=== PATIENT | male | born 1955 | race Caucasian/White ===

== ENCOUNTER 2019-10-03 14:08 | Observation (INO) | payer OTHER ==
--- NOTE | 2019-10-03 14:25 | PDOC ---
Rapid Medical Evaluation Chief Complaint: Chest Pain Time Seen by Provider: 10/03/19 14:22 Medical Evaluation: Allergies Allergy/AdvReac Type Severity Reaction Status Date / Time No Known Allergies Allergy Verified 10/03/19 14:19 Vital Signs Temp Pulse Resp BP Pulse Ox 98 F 60 18 132/61 99 10/03/19 14:11 10/03/19 14:11 10/03/19 14:11 10/03/19 14:11 10/03/19 14:11 10/03/19 14:22 Pt c/o: chest tightness and sob, pt radiates from left chest to back, cardiac hx , missed his cardiac cath appt last week Pt on brief exam: reproducible cp at 6th- 8th rib at left nipple/mcl , lcta, vss , ekg nsr Pt ordered for: cardiac w/u. pt was seen by dex in triage Pt to proceed to the ED Discharge Disposition - Diagnosis Chest pain - Referrals - Patient Instructions - Post Discharge Activity
[2019-10-03 15:33] LABS: BASO % 0.9 % (0-2.0); EOS % 9.1 % (0-4.5); HEMATOCRIT 32.5 % (35.4-49); HEMOGLOBIN 9.9 GM/dL (11.7-16.9); LYMPH % 34.3 % (8-40); MCHC 30.5 g/dl (32.0-35.9); MEAN CELL VOLUME 68.7 fl (80-96); MEAN PLT VOLUME 7.5 fl (7.5-11.1); MONO % 7.8 % (3.8-10.2); NEUT % 47.9 % (42.8-82.8); PLATELET COUNT 250 K/MM3 (134-434); RBC 4.73 M/mm3 (4.00-5.60); RDW 16.9 % (11.9-15.9); WHITE BLOOD COUNT 5.3 K/mm3 (4.0-10.0)
[2019-10-03 16:09] LABS: ALBUMIN 3.9 g/dl (3.4-5.0); BILIRUBIN,TOTAL 0.2 mg/dL (0.2-1); CALCIUM 8.9 mg/dL (8.5-10.1); CREATININE 0.7 mg/dL (0.55-1.3); MAGNESIUM 2.4 mg/dL (1.8-2.4); POTASSIUM 4.4 mmol/L (3.5-5.1); TOT PROT 7.2 g/dl (6.4-8.2)
[2019-10-03 16:44] LABS: INR 1.04 (0.83-1.09); PROTHROMBIN TIME (PATIENT) 12.3 SEC (9.7-13.0)
[2019-10-03 16:47] LABS: ACTIVATED PTT 30.3 SECONDS (25.2-36.5)
[2019-10-03 17:30] LABS: ANISOCYTOSIS 1+; MACROCYTOSIS 0; PLATELET ESTIMATE NORMAL
--- NOTE | 2019-10-03 17:37 | PDOC ---
Attending Attestation - Resident Resident Name: Joel James - ED Attending Attestation I have performed the following: I have examined & evaluated the patient, The case was reviewed & discussed with the resident, I agree w/resident's findings & plan, Exceptions are as noted - HPI HPI: 10/03/19 17:32 Mr. Dilshad Salas is a 64 yo M who presents to the ER with a complaint of chest pain The patient states that he has had chest pain intermittently for the past day He has also had a headache for the past 3 days Chest pain radiates to the left arm Pt was supposed to go to Cardiac Cath last week but did not Plan is for cardiac cath at the end of October No exertional dyspnea PMH: DM, HTN, HLD PSH: carol Meds: please see MAR - Physicial Exam PE: 10/03/19 17:37 Exam GENERAL: The patient is in no acute distress. ENT: Ears normal, nares patent, oropharynx clear without exudates. Moist mucous membranes. NECK: Normal range of motion, supple, no nuchal rigidity (+) LAD LUNGS: Breath sounds equal, clear to auscultation bilaterally. No wheezes, and no crackles. HEART:Regular rate and rhythm, normal S1 and S2 without murmur, rub or gallop. ABDOMEN: Soft, nontender, normoactive bowel sounds. EXTREMITIES: Normal range of motion, no edema. NEUROLOGICAL: Cranial nerves II through XII grossly intact. Normal speech. No focal neurological deficits. No focal weakness or numbness SKIN: Warm, Dry, normal turgor, no rashes or lesions noted. - Medical Decision Making 10/03/19 17:38 64-year-old male presenting to emergency department with recurrent chest pain, was due to have a cardiac catheterization but missed his appointment. Patient presents with chest pain which occurred yesterday, none today Differential includes cardiac ischemia, pe, asthma exacerbation, pneumonia, pneumothorax, pleural effusion, costochondritis, pericarditis, GERD. We will do: Labs EKG Chest x-ray Will plan to admit 10/03/19 17:40 Laboratory Tests 10/03/19 10/03/19 10/03/19 15:20 15:20 15:20 WBC 5.3 Hgb 9.9 L Hct 32.5 L Plt Count 250 BUN 11.0 Creatinine 0.7 Creatine Kinase 103 Troponin I < 0.[address] head as pt has had headache AND some left facial tingling for the past three days CT head: No acute intracranial hemorrhage or mass empty sella turcica Will admit for chest pain
--- NOTE | 2019-10-03 18:14 | PDOC ---
History of Present Illness - General Chief Complaint: Chest Pain Stated Complaint: CHEST PAIN Time Seen by Provider: 10/03/19 14:22 History Source: Patient - History of Present Illness Initial Comments: Mr. Yung is a 64 y/o man with hx CAD, HTN p/w chest pain yesterday. He reports that yesterday he began to note non-radiating pain in his chest. He reports that he had intermittent chest pain overnight, although he denies any pain at this time. He reports some numbness in his L arm when he woke up that has now resolved. He reports that last week he was scheduled for a cardiac stenting by cardiology (Dr. Espinosa), but that he did not make it to the appointment and does not have a follow up scheduled. He reports running into Dr. Crespo who was concerned that he was not in the hospital (as he had been scheduled for stenting) and encouraged him to be evaluated in the ED. 10/03/19 18:13 Fire Adjuster - Dr. Espinosa Evaluated in ED by Dr. Crespo. Patient was scheduled for cardiac stenting last week and missed appointment, plan for cardiac obs/linkage to further cardiac care Past History - Past Medical History Allergies/Adverse Reactions: Allergies Allergy/AdvReac Type Severity Reaction Status Date / Time No Known Allergies Allergy Verified 10/03/19 14:19 Home Medications: Ambulatory Orders Metformin HCl [Glucophage] 850 mg PO DAILY 10/03/19 Metoprolol Tartrate 100 mg PO DAILY 10/03/19 Cardiac Disorders: Yes COPD: No Diabetes: Yes - Surgical History Appendectomy: Yes - Psycho Social/Smoking Cessation Hx Smoking History: Never smoked *Physical Exam - Vital Signs Last Vital Signs Temp Pulse Resp BP Pulse Ox 98 F 60 18 132/61 99 10/03/19 14:11 10/03/19 14:11 10/03/19 14:11 10/03/19 14:11 10/03/19 16:06 ED Treatment Course - LABORATORY CBC & Chemistry Diagram: 10/03/19 15:20 10/03/19 15:20 - ADDITIONAL ORDERS Additional order review: Laboratory Results 10/03/19 10/03/19 10/03/19 15:20 15:20 15:20 PT with INR 12.30 INR 1.04 PTT (Actin FS) 30.3 Sodium 139 Potassium 4.4 Chloride 106 Carbon Dioxide 30 Anion Gap 4 L BUN 11.0 Creatinine 0.7 Est GFR (CKD-EPI)AfAm 115.59 Est GFR (CKD-EPI)NonAf 99.73 Random Glucose 100 Calcium 8.9 Magnesium 2.4 Total Bilirubin 0.2 AST 18 ALT 28 Alkaline Phosphatase 70 Creatine Kinase 103 Troponin I < 0.02 Total Protein 7.2 Albumin 3.9 10/03/19 15:20 RBC 4.73 MCV 68.7 L MCHC 30.5 L RDW 16.9 H MPV 7.5 Neutrophils % 47.9 Lymphocytes % 34.3 Monocytes % 7.8 Eosinophils % 9.1 H Basophils % 0.9 - RADIOLOGY Radiology Studies Ordered: Category Date Time Status HEAD CT WITHOUT CONTRAST [CT] Stat CT Scan 10/03/19 16:07 Completed CHEST X-RAY PORTABLE* [RAD] Stat Radiology 10/03/19 16:03 Taken Discharge - Discharge Information Clinical Impression/Diagnosis: Chest pain - Follow up/Referral - Patient Discharge Instructions - Post Discharge Activity
--- NOTE | 2019-10-03 19:21 | PN ---
Teaching Attending Note Name of Resident: Vidal Shultz ATTENDING PHYSICIAN STATEMENT I saw and evaluated the patient. I reviewed the resident's note and discussed the case with the resident. I agree with the resident's findings and plan as documented. SUBJECTIVE: Patient is a 64 year old man with PMH of NIDDM, HLD, CAD and HTN who presents with chest pain since yesterday. He reports that yesterday he began to note non- radiating pain in his chest. He had intermittent chest pain overnight, although he denies any pain at this time. Noted some numbness in his left arm when he woke up that has since resolved. He missed the appointment for a scheduled cardiac stenting by cardiology (Dr. Espinosa) last week. Denies fever, chills , headache, SOB, diaphoresis, abdominal pain, vomiting, dysuria, frequency or diarrhea. No recent travel or sick contacts. Denies alcohol, tobacco or illicit drug use. OBJECTIVE: Alert Vital Signs Period Temp Pulse Resp BP Sys/Hilario Pulse Ox Last 24 Hr 98 F 55-60 14-18 125-132/61-72 99-99 HEENT: No Jaundice, eye redness or discharge, PERRLA, EOMI. Normocephalic, atraumatic. External ears are normal and hearing is grossly intact. No nasal discharge. Neck: Supple, nontender. No palpable adenopathy or thyromegaly. No JVD Chest: Good effort. Bibasilar crackles. Clear to percussion. Heart: Regular. No S3, rub or murmur Abdomen: Not distended, soft, nontender and no HSM. No rebound or guarding. Normal bowel sounds. Ext: Peripheral pulses intact. No leg edema. Skin: Warm and dry. No petechiae, rash or ecchymosis. Neuro: Alert. Oriented x3. CN 2-12 grossly intact. Sensation grossly intact in all four extremities and DTR are symmetric. Psych: Appropriate mood and affect. Good insight. Home Medications Medication Instructions Recorded Metformin HCl [Glucophage] 850 mg PO DAILY 10/03/19 Metoprolol Tartrate 100 mg PO DAILY 10/03/19 Abnormal Lab Results 10/03/19 10/03/19 15:20 15:20 Hgb 9.9 L Hct 32.5 L MCV 68.7 L MCH 21.0 L MCHC 30.5 L RDW 16.9 H Eosinophils % 9.1 H Anion Gap 4 L ASSESSMENT AND PLAN: 1. Chest pain - Now pain free. No acute abnormality on CXR. No acute intracranial abnormality on Head CT scan. EKG shows sinus bradycardia with rate of [address]-T wave changes. Initial troponin is negative. Will admit to telemetry to rule out ACS, get ECHO, fasting lipids and consult cardiology. Will continue comprehensive care for all of patients comorbid conditions. 2. DM For now, we will hold the home diabetes drugs and implement sliding scale insulin regimen. Provide comprehensive diabetes care with patient teaching and counseling about the importance of adherence to prescribed diabetes regimen, euglycemia, eye care and foot care. 3. Anemia with low MCV - Cause unclear. Will do basic anemia work up including serial stool guaiacs, reticulocyte count and iron studies. Consult GI. Would benefit from Procrit therapy once iron replete. 4. Obesity Counseled on the risks associated with obesity. Will provide patient all the necessary assistance, counseling and positive reinforcement to facilitate weight loss. Consult director music. 5. Hypertension - Restart suitable outpatient antihypertensive drugs when clinically appropriate. Revise regimen to ensure [id number] excellent BP control and classification counselor patient on the injurious effects of uncontrolled hypertension. Nonpharmacologic measures to control hypertension like weight loss , salt restriction and exercise discussed. Importance of adherence to treatment regimen and attainment of normotension emphasized. 6. DVT prophylaxis - Lovenox 40 mg SQ q 24 hours. 7. Advance directives - Full code
--- NOTE | 2019-10-03 20:33 | HP ---
CHIEF COMPLAINT: chest pain PCP: Dr. Mcghee HISTORY OF PRESENT ILLNESS: 64 yo M PMH of HTN, CAD, DM, HLD presenting to ED with chest pain. pt states that on 10/02 (11am) he started having 10/10 left sided chest pain. he states the pain occasionally radiated to his back and occasionally down his L arm. he states the pain is pleuritic and worse when he sits forward. pt was scheduled for cardiac cath in Oct at [facility] . pt states he saw his PCP today and was told to come to the ED as he might be having a blockage in his heart. pt states that for 3 days hes been having a headache. pt states his sugars have also been elevated for 3 days. pt states yesterday he also experienced nausea and dizziness. the chest pain has been resolved for a day and his headache is now improving. pt denies fevers, chills,vomiting, shortness of breath ER course was notable for: (1)trop neg x2 (2)EKG NSR, no ST changes (3)CT head neg Recent Travel: denies PAST MEDICAL HISTORY:HTN, CAD, DM, HLD PAST SURGICAL HISTORY:appendectomy , L shoulder surgery Social History: Smoking:denies Alcohol:denies Drugs: denies Allergies No Known Allergies Allergy (Verified 10/03/19 14:19) HOME MEDICATIONS: Home Medications Medication Instructions Recorded Metformin HCl [Glucophage] 850 mg PO DAILY 10/03/19 Metoprolol Tartrate 100 mg PO DAILY 10/03/19 REVIEW OF SYSTEMS CONSTITUTIONAL: Absent: fever, chills, diaphoresis, generalized weakness, malaise, loss of appetite, weight change HEENT: Absent: rhinorrhea, nasal congestion, throat pain, throat swelling, difficulty swallowing, mouth swelling, ear pain, eye pain, visual changes CARDIOVASCULAR: Present: chest pain, lightheadedness Absent: syncope, palpitations, irregular heart rate, peripheral edema RESPIRATORY: Absent: cough, shortness of breath, dyspnea with exertion, orthopnea, wheezing, stridor, hemoptysis GASTROINTESTINAL: Present: nausea Absent: abdominal pain, abdominal distension, vomiting, diarrhea, constipation, melena, hematochezia GENITOURINARY: Absent: dysuria, frequency, urgency, hesitancy, hematuria, flank pain, genital pain MUSCULOSKELETAL: Absent: myalgia, arthralgia, joint swelling, back pain, neck pain SKIN: Absent: rash, itching, pallor HEMATOLOGIC/IMMUNOLOGIC: Absent: easy bleeding, easy bruising, lymphadenopathy, frequent infections ENDOCRINE: Absent: unexplained weight gain, unexplained weight loss, heat intolerance, cold intolerance NEUROLOGIC: Absent: headache, focal weakness or paresthesias, dizziness, unsteady gait, seizure, mental status changes, bladder or bowel incontinence PHYSICAL EXAMINATION Vital Signs - 24 hr 10/03/19 10/03/19 10/03/19 14:11 16:06 19:30 Temperature 98 F Pulse Rate 60 Pulse Rate [ 55 L Right] Respiratory 18 14 Rate Blood Pressure 132/61 Blood Pressure 125/72 [Right Arm] O2 Sat by Pulse 99 99 99 Oximetry (%) GENERAL: Awake, alert, and fully oriented, in no acute distress. HEAD: Normal with no signs of trauma. EYES: Pupils equal, round and reactive to light, extraocular movements intact EARS, NOSE, THROAT: Ears normal, nares patent, oropharynx clear without exudates. Moist mucous membranes. NECK: Normal range of motion, supple without lymphadenopathy, JVD LUNGS: Breath sounds equal, b/l basilar crackles. No accessory muscle use. HEART: Regular rate and rhythm, normal S1 and S2 without murmur, rub or gallop. ABDOMEN: Soft, nontender, not distended, normoactive bowel sounds, no guarding, no rebound, no masses. MUSCULOSKELETAL: Normal range of motion at all joints. No bony deformities or tenderness. No CVA tenderness. UPPER EXTREMITIES: 2+ pulses, warm, well-perfused. No cyanosis. No clubbing. No peripheral edema. LOWER EXTREMITIES: 2+ pulses, warm, well-perfused. No calf tenderness. No peripheral edema. NEUROLOGICAL: Cranial nerves II-XII intact. Normal speech. PSYCHIATRIC: Cooperative. Good eye contact. Appropriate mood and affect. SKIN: Warm, dry, normal turgor, no rashes or lesions noted, normal capillary refill. Laboratory Last Values WBC 5.3 K/mm3 (4.0-10.0) 10/03/19 15:20 RBC 4.73 M/mm3 (4.00-5.60) 10/03/19 15:20 Hgb 9.9 GM/dL (11.7-16.9) L 10/03/19 15:20 Hct 32.5 % (35.4-49) L 10/03/19 15:20 MCV 68.7 fl (80-96) L 10/03/19 15:20 MCH 21.0 pg (25.7-33.7) L 10/03/19 15:20 MCHC 30.5 g/dl (32.0-35.9) L 10/03/19 15:20 RDW 16.9 % (11.9-15.9) H 10/03/19 15:20 Plt Count 250 K/MM3 (134-434) 10/03/19 15:20 MPV 7.5 fl (7.5-11.1) 10/03/19 15:20 Absolute Neuts (auto) 2.5 K/mm3 (1.5-8.0) 10/03/19 15:20 Neutrophils % 47.9 % (42.8-82.8) 10/03/19 15:20 Lymphocytes % 34.3 % (8-40) 10/03/19 15:20 Monocytes % 7.8 % (3.8-10.2) 10/03/19 15:20 Eosinophils % 9.1 % (0-4.5) H 10/03/19 15:20 Basophils % 0.9 % (0-2.0) 10/03/19 15:20 Nucleated RBC % 0 % (0-0) 10/03/19 15:20 Hypochromia 2+ 10/03/19 15:20 Platelet Estimate Normal 10/03/19 15:20 Polychromasia 0 10/03/19 15:20 Poikilocytosis 1+ 10/03/19 15:20 Anisocytosis 1+ 10/03/19 15:20 Microcytosis 1+ 10/03/19 15:20 Macrocytosis 0 10/03/19 15:20 PT with INR 12.30 SEC (9.7-13.0) 10/03/19 15:20 INR 1.04 (0.83-1.09) 10/03/19 15:20 PTT (Actin FS) 30.3 SECONDS (25.2-36.5) 10/03/19 15:20 Sodium 139 mmol/L (136-145) 10/03/19 15:20 Potassium 4.4 mmol/L (3.5-5.1) 10/03/19 15:20 Chloride 106 mmol/L (98-107) 10/03/19 15:20 Carbon Dioxide 30 mmol/L (21-32) 10/03/19 15:20 Anion Gap 4 MMOL/L (8-16) L 10/03/19 15:20 BUN 11.0 mg/dL (7-18) 10/03/19 15:20 Creatinine 0.7 mg/dL (0.55-1.3) 10/03/19 15:20 Est GFR (CKD-EPI)AfAm 115.59 10/03/19 15:20 Est GFR (CKD-EPI)NonAf 99.73 10/03/19 15:20 Random Glucose 100 mg/dL (74-106) 10/03/19 15:20 Calcium 8.9 mg/dL (8.5-10.1) 10/03/19 15:20 Magnesium 2.4 mg/dL (1.8-2.4) 10/03/19 15:20 Total Bilirubin 0.2 mg/dL (0.2-1) 10/03/19 15:20 AST 18 U/L (15-37) 10/03/19 15:20 ALT 28 U/L (13-61) 10/03/19 15:20 Alkaline Phosphatase 70 U/L (45-117) 10/03/19 15:20 Creatine Kinase 103 U/L (26-308) 10/03/19 15:20 Troponin I < 0.02 ng/ml (0.00-0.05) 10/03/19 19:30 Total Protein 7.2 g/dl (6.4-8.2) 10/03/19 15:20 Albumin 3.9 g/dl (3.4-5.0) 10/03/19 15:20 ASSESSMENT/PLAN: 64 yo M PMH of HTN, CAD, DM, HLD presenting to ED with chest pain. pt states that on 10/02 (11am) he started having 10/10 left sided chest pain.pt is admitted to tele obs for r/o ACS R/o ACS - trop neg x2 - EKG reviewed, NSR no ST changes -pt currently asymptomatic, vitals stable - pending echo - c/w asa 81 , statin - NPO for possible stress in am - continue cardiac monitoring -cardio recs appreciated DM - hold oral antiglycemic -ISS - BGM ACHS HTN - continue metoprolol F/E/N -monitor lytes - NPO Dispo: tele obs Visit type - Emergency Visit Emergency Visit: Yes ED Registration Date: 10/03/19 Care time: The patient presented to the Emergency Department on the above date and was hospitalized for further evaluation of their emergent condition. - New Patient This patient is new to me today: Yes Date on this admission: 10/04/19 - Critical Care Critical Care patient: No ATTENDING PHYSICIAN STATEMENT I saw and evaluated the patient. I reviewed the resident's note and discussed the case with the resident. I agree with the resident's findings and plan as documented. SUBJECTIVE: OBJECTIVE: ASSESSMENT AND PLAN:
[2019-10-03] MEDS ORDERED: ACETAMINOPHEN 325 MG TABLET (FP) PO PRN (21:42)
[2019-10-03 23:16] VITALS: BMI 31.3
[2019-10-04 07:07] LABS: BASO % 0.6 % (0-2.0); EOS % 7.8 % (0-4.5); HEMATOCRIT 31.1 % (35.4-49); HEMOGLOBIN 9.8 GM/dL (11.7-16.9); LYMPH % 29.9 % (8-40); MCH 21.3 pg (25.7-33.7); MCHC 31.6 g/dl (32.0-35.9); MEAN CELL VOLUME 67.3 fl (80-96); MEAN PLT VOLUME 7.6 fl (7.5-11.1); MONO % 6.5 % (3.8-10.2); NEUT % 55.2 % (42.8-82.8); PLATELET COUNT 220 K/MM3 (134-434); RBC 4.63 M/mm3 (4.00-5.60); RDW 16.9 % (11.9-15.9); RETICULOCYTES 1.81 % (0.5-1.5); WHITE BLOOD COUNT 6.1 K/mm3 (4.0-10.0)
[2019-10-04 07:14] LABS: INR 1.1 (0.83-1.09)
--- NOTE | 2019-10-04 07:17 | CON.CARD ---
Consult Consult Specialty:: cardiology Reason for Consultation:: chest pain - History of Present Illness Chief Complaint: Pt A&O3; c/o chest pain and left shoulder pain now. History of Present Illness: 64 yr old man with PMHx HTN, hyperlipidemia, DM, obesity, CAD (09/2019 stress treadmill MIBI: moderate area/moderate intensity inferior wall ischemia), now admitted with left anterior chest tightness (moderately severe) and left shoulder pain. - History Source History Provided By: Patient Limitations to Obtaining History: No Limitations - Past Medical History Cardio/Vascular: Yes: HTN, Hyperlipdemia Pulmonary: Yes: COPD - Alcohol/Substance Use Hx Alcohol Use: No - Smoking History Smoking history: Never smoked Have you smoked in the past 12 months: No Home Medications - Allergies Allergies/Adverse Reactions: Allergies Allergy/AdvReac Type Severity Reaction Status Date / Time No Known Allergies Allergy Verified 10/03/19 14:19 - Home Medications Home Medications: Ambulatory Orders Metformin HCl [Glucophage] 850 mg PO DAILY 10/03/19 Metoprolol Tartrate 100 mg PO DAILY 10/03/19 Family Medical History Family History: Denies Review of Systems - Review of Systems Constitutional: reports: No Symptoms Eyes: reports: No Symptoms HENT: reports: No Symptoms Neck: reports: No Symptoms Cardiovascular: reports: Chest Pain Respiratory: reports: No Symptoms Gastrointestinal: reports: No Symptoms Genitourinary: reports: No Symptoms Breasts: reports: No Symptoms Reported Musculoskeletal: reports: Joint Pain (left shoulder), Muscle Pain Integumentary: reports: No Symptoms Neurological: reports: No Symptoms Endocrine: reports: No Symptoms Hematology/Lymphatic: reports: No Symptoms Psychiatric: reports: Anxiety - Risk Factors Known Risk Factors: Yes: Age, Diabetes Mellitus, Gender, Hypercholesterolemia, Hypertension, Physical Inactivity, Other (+ stress MIBI) Vital Signs: Vital Signs Temperature 97.9 F 10/04/19 05:00 Pulse Rate 53 L 10/04/19 05:00 Respiratory Rate 17 10/04/19 05:00 Blood Pressure 118/74 10/04/19 05:00 O2 Sat by Pulse Oximetry (%) 97 10/04/19 05:44 Constitutional: Yes: Well Nourished Eyes: Yes: WNL HENT: Yes: WNL Neck: Yes: WNL Respiratory: Yes: WNL Gastrointestinal: Yes: WNL Renal/: Yes: WNL Cardiovascular: Yes: WNL JVD: No Carotid Bruit: No PMI: Non-Displaced Heart Sounds: Yes: S1, S2 Musculoskeletal: Yes: Joint Stiffness Extremities: Yes: WNL Edema: No Peripheral Pulses WNL: Yes Integumentary: Yes: WNL Neurological: Yes: WNL ...Motor Strength: WNL Psychiatric: Yes: WNL - Other Data Labs, Other Data: INR, PTT INR 1.10 (0.83-1.09) H 10/04/19 06:40 Troponin, BNP 10/03/19 10/03/19 15:20 19:30 Troponin I < 0.02 < 0.02 Troponin, BNP 10/03/19 10/03/19 15:20 19:30 Troponin I < 0.02 < 0.02 Ejection Fraction %: LVEF > or = 40 % Imaging - Results Chest X-ray: Image Reviewed EKG: Image Reviewed Problem List - Problems (1) Diabetes Code(s): E11.9 - TYPE 2 DIABETES MELLITUS WITHOUT COMPLICATIONS (2) HTN (hypertension) Code(s): I10 - ESSENTIAL (PRIMARY) HYPERTENSION (3) Hyperlipidemia Assessment/Plan: F/u liopid profile, and adjust atorvastatin dose accoringly to keep LDL < 70 mg/ dL. Code(s): E78.5 - HYPERLIPIDEMIA, UNSPECIFIED (4) Obesity (BMI 30.0-34.9) Code(s): E66.9 - OBESITY, UNSPECIFIED (5) Chest pain Assessment/Plan: TNI < 0.02; f/u serially. EKG: NSR: no acute ST-T changes Plan: Telemetry Serial TNI and EKG ECHO for LVEF, regional wall motion, valve statue. If unremarkalbe workup, pt may be discharged; planned for coronary angiogram in 10/1028. Code(s): R07.9 - CHEST PAIN, UNSPECIFIED
[2019-10-04 07:33] LABS: ALBUMIN 3.6 g/dl (3.4-5.0); BILIRUBIN,TOTAL 0.4 mg/dL (0.2-1); CALCIUM 8.9 mg/dL (8.5-10.1); CREATININE 0.7 mg/dL (0.55-1.3); MAGNESIUM 2.2 mg/dL (1.8-2.4); PHOSPHOROUS 4.1 mg/dL (2.5-4.9); POTASSIUM 4.3 mmol/L (3.5-5.1); TOT PROT 6.7 g/dl (6.4-8.2)
[2019-10-04] MEDS ORDERED: PATIENT'S OWN MEDICATION (NON-FORMULARY) (Metoprolol Tartrate [Metoprolol Tartrate] 100 MG PO SCH (10:00)
[2019-10-04] MEDS ORDERED: METOPROLOL TARTRATE 50 MG TABLET (FP) PO SCH (10:00)
[2019-10-04] MEDS ORDERED: ASPIRIN 81 MG CHEWABLE TABLETS PO SCH (10:00)
[2019-10-04] MEDS ORDERED: DOCUSATE SODIUM 100 MG CAPSULE (FP) PO SCH (10:00)
[2019-10-04] MEDS ORDERED: ENOXAPARIN NA (PORCINE) 40 MG/0.4 ML DISP.SYRIN SQ SCH (10:00)
--- NOTE | 2019-10-04 12:09 | ECHO ---
Name: RONIT KELLYIBERTO Exam:Adult Echocardiogram Study Date: 10/04/2019 07:47 AM Age: 64 yrs Reason For Study: R/O ACS Height: 64 in Weight: 138 lb BSA: 1.7 m2 MMode/2D Measurements & Calculations IVSd: 0.97 cm Ao root diam: 3.0 cm LVIDd: 4.0 cm LA dimension: 3.2 cm LVIDs: 2.8 cm ACS: 2.0 cm LVPWd: 1.0 cm EDV(Teich): 68.7 ml LVOT diam: 2.0 cm ESV(Teich): 30.1 ml LAV (MOD-bp): 36.5 ml RV S Jason: 13.1 cm/sec Doppler Measurements & Calculations MV E max jason: 83.1 cm/sec MVA(VTI): 3.8 cm2 MV A max jason: 106.6 cm/sec MV V2 max: 114.0 cm/sec MV E/A: 0.78 MV max P.2 mmHg MV dec time: 0.19 sec MV V2 mean: 52.1 cm/sec MV mean P.0 mmHg MV V2 VTI: 22.9 cm Ao V2 max: 172.5 cm/sec AI max jason: 404.3 cm/sec Ao max P.0 mmHg AI max P.0 mmHg Ao V2 mean: 123.3 cm/sec Ao mean P.6 mmHg AI dec slope: 286.3 cm/sec2 Ao V2 VTI: 45.6 cm DENG(I,D): 1.9 cm2 AI P1/2t: 413.6 msec DENG(V,D): 1.7 cm2 LV V1 max P.9 mmHg MR max jason: 314.3 cm/sec LV V1 mean P.5 mmHg MR max P.8 mmHg LV V1 max: 96.2 cm/sec LV V1 mean: 73.3 cm/sec LV V1 VTI: 28.4 cm SV(LVOT): 87.8 ml TR max jason: 182.3 cm/sec TR max P.0 mmHg PA V2 max: 90.3 cm/sec Med Peak E' Jason: 6.6 cm/sec PA max P.4 mmHg Med E/e': 12.6 Lat Peak E' Jason: 7.6 cm/sec Lat E/e': 10.9 PI Vmax: 78.7 cm/sec Left Ventricle Left ventricular systolic function is normal. Ejection Fraction = 55-60%. Right Ventricle The right ventricle is normal in size and function. Atria Normal left and right atrial size and function. Mitral Valve There is mild mitral valve thickening. There is no mitral valve stenosis. There is mild mitral regurg itation. Tricuspid Valve The tricuspid valve is normal in structure and function. There is mild tricuspid regurgitation. Aortic Valve The aortic valve opens well. No hemodynamically significant valvular aortic stenosis. Trace to mild a ortic regurgitation. Pulmonic Valve The pulmonic valve is not well seen, but is grossly normal. There is no pulmonic valvular stenosis. T race pulmonic valvular regurgitation. Great Vessels The aortic root is normal size. Pericardium/Pleura There is no pericardial effusion. Interpretation Summary Left ventricular systolic function is normal. Ejection Fraction = 55-60%. There is mild mitral valve thickening. There is mild mitral regurgitation. There is mild tricuspid regurgitation. Trace to mild aortic regurgitation. There is no pericardial effusion. MD [place] *Mami 10/04/2019 12:09 PM
--- NOTE | 2019-10-04 13:41 | EKG ---
Test Reason : Blood Pressure : / mmHG Vent. Rate : 056 BPM Atrial Rate : 056 BPM P-R Int : 156 ms QRS Dur : 096 ms QT Int : 458 ms P-R-T Axes : 037 016 009 degrees QTc Int : 441 ms SINUS BRADYCARDIA OTHERWISE NORMAL ECG NO PREVIOUS ECGS AVAILABLE Confirmed by MEMO VALADEZ MD ([id number]) on 10/04/2019 1:41:05 PM Referred By: ANGEL MCNAMARA DR Confirmed By:MEMO VALADEZ MD
[2019-10-04] MEDS ORDERED: IRON SUCROSE INJECTION 200 MG in SODIUM CHLORIDE 90 ML IVPB ONE (14:00)
--- NOTE | 2019-10-04 14:09 | EKG ---
Test Reason : Blood Pressure : / mmHG Vent. Rate : 057 BPM Atrial Rate : 057 BPM P-R Int : 118 ms QRS Dur : 090 ms QT Int : 452 ms P-R-T Axes : 053 032 031 degrees QTc Int : 439 ms SINUS BRADYCARDIA OTHERWISE NORMAL ECG NO PREVIOUS ECGS AVAILABLE Confirmed by MEMO VALADEZ MD ([id number]) on 10/04/2019 2:09:01 PM Referred By: Confirmed By:MEMO VALADEZ MD
--- NOTE | 2019-10-04 14:32 | CONSULT ---
Consultation: REQUESTING PROVIDER: Kiki Patterson CONSULT REQUEST: We have been asked to medically evaluate this patient for ( Symptomatic anemia ). HISTORY OF PRESENT ILLNESS: 64 yo M PMH of HTN, CAD, DM, HLD presenting to ED with chest pain. pt states that on 10/02 (11am) he started having 10/10 left sided chest pain. he states the pain occasionally radiated to his back and occasionally down his L arm. he states the pain is pleuritic and worse when he sits forward. pt was scheduled for cardiac cath in Oct at [facility] . pt states he saw his PCP today and was told to come to the ED as he might be having a blockage in his heart. pt states that for 3 days hes been having a headache. pt states his sugars have also been elevated for 3 days. pt states yesterday he also experienced nausea and dizziness. the chest pain has been resolved for a day and his headache is now improving. pt denies fevers, chills,vomiting, shortness of breath ER course was notable for: (1)trop neg x2 (2)EKG NSR, no ST changes (3)CT head neg Recent Travel: denies PAST MEDICAL HISTORY:HTN, CAD, DM, HLD PAST SURGICAL HISTORY:appendectomy , L shoulder surgery Social History: Smoking:denies Alcohol:denies Drugs: denies REVIEW OF SYSTEMS: CONSTITUTIONAL: Absent: fever, chills, diaphoresis, generalized weakness, malaise, loss of appetite, weight change HEENT: Absent: rhinorrhea, nasal congestion, throat pain, throat swelling, difficulty swallowing, mouth swelling, ear pain, eye pain, visual changes CARDIOVASCULAR: Absent: chest pain, syncope, palpitations, irregular heart rate, lightheadedness , peripheral edema RESPIRATORY: Absent: cough, shortness of breath, dyspnea with exertion, orthopnea, wheezing, stridor, hemoptysis GASTROINTESTINAL: Absent: abdominal pain, abdominal distension, nausea, vomiting, diarrhea, c onstipation, melena, hematochezia GENITOURINARY: Absent: dysuria, frequency, urgency, hesitancy, hematuria, flank pain, genital pain MUSCULOSKELETAL: Absent: myalgia, arthralgia, joint swelling, back pain, neck pain SKIN: Absent: rash, itching, pallor HEMATOLOGIC/IMMUNOLOGIC: Absent: easy bleeding, easy bruising, lymphadenopathy, frequent infections ENDOCRINE: Absent: unexplained weight gain, unexplained weight loss, heat intolerance, cold intolerance NEUROLOGIC: Absent: headache, focal weakness or paresthesias, dizziness, unsteady gait, seizure, mental status changes, bladder or bowel incontinence PSYCHIATRIC: Absent: anxiety, depression, suicidal or homicidal ideation, hallucinations. PHYSICAL EXAMINATION Vital Signs - 24 hr 10/03/19 10/03/19 10/03/19 16:06 19:30 20:00 Temperature 98.7 F Pulse Rate 60 Pulse Rate [ 55 L Right] Respiratory 14 19 Rate Blood Pressure 137/76 Blood Pressure 125/72 [Right Arm] O2 Sat by Pulse 99 99 97 Oximetry (%) 10/04/19 10/04/19 10/04/19 01:44 05:00 05:44 Temperature 98 F 97.9 F Pulse Rate 54 L 53 L Pulse Rate [ Right] Respiratory 20 17 Rate Blood Pressure 122/71 118/74 Blood Pressure [Right Arm] O2 Sat by Pulse 97 Oximetry (%) 10/04/19 08:55 Temperature 97.9 F Pulse Rate 59 L Pulse Rate [ Right] Respiratory 18 Rate Blood Pressure 108/71 Blood Pressure [Right Arm] O2 Sat by Pulse 97 Oximetry (%) GENERAL: Awake, alert, and fully oriented, in no acute distress. HEAD: Normal with no signs of trauma. EYES: Pupils equal, round and reactive to light, extraocular movements intact, anicteric sclera , EARS, NOSE, THROAT: Ears normal, nares patent, oropharynx clear without exudates. Moist mucous membranes. NECK: Normal range of motion, supple without lymphadenopathy Breast no palpable masses nodes: No lymphadenopathy palpated LUNGS: Breath sounds equal, clear to auscultation bilaterally. No wheezes, and no crackles. No accessory muscle use. HEART: Regular rate and rhythm, normal S1 and S2 without murmur, rub or gallop. ABDOMEN: Soft, nontender, not distended, normoactive bowel sounds, no guarding, surgical scar RLQ LOWER EXTREMITIES: 2+ pulses, warm, well-perfused. No calf tenderness. No peripheral edema. NEUROLOGICAL: no focal deficit . Normal speech. PSYCHIATRIC: Cooperative. Good eye contact. SKIN: Warm, dry, normal turgor, Rectal exam performed by la : normal sphincter tone , brown stool , no tags was seen out pt or internal hemorrhoid was felt . occult blood test was send to the lab Laboratory Results - last 24 hr 10/03/19 10/03/19 10/03/19 15:20 15:20 15:20 WBC 5.3 RBC 4.73 Hgb 9.9 L Hct 32.5 L MCV 68.7 L MCH 21.0 L MCHC 30.5 L RDW 16.9 H Plt Count 250 MPV 7.5 Absolute Neuts (auto) 2.5 Neutrophils % 47.9 Lymphocytes % 34.3 Monocytes % 7.8 Eosinophils % 9.1 H Basophils % 0.9 Nucleated RBC % 0 Hypochromia 2+ Platelet Estimate Normal Polychromasia 0 Poikilocytosis 1+ Anisocytosis 1+ Microcytosis 1+ Macrocytosis 0 Retic Count PT with INR 12.30 INR 1.04 PTT (Actin FS) 30.3 Sodium Potassium Chloride Carbon Dioxide Anion Gap BUN Creatinine Est GFR (CKD-EPI)AfAm Est GFR (CKD-EPI)NonAf POC Glucometer Random Glucose Hemoglobin A1c % Calcium Phosphorus Magnesium Iron TIBC Iron Saturation Unsaturated IBC Total Bilirubin AST ALT Alkaline Phosphatase Creatine Kinase 103 Troponin I < 0.02 Total Protein Albumin Triglycerides Cholesterol Total LDL Cholesterol HDL Cholesterol TSH 10/03/19 10/03/19 10/04/19 15:20 19:30 06:15 WBC RBC Hgb Hct MCV MCH MCHC RDW Plt Count MPV Absolute Neuts (auto) Neutrophils % Lymphocytes % Monocytes % Eosinophils % Basophils % Nucleated RBC % Hypochromia Platelet Estimate Polychromasia Poikilocytosis Anisocytosis Microcytosis Macrocytosis Retic Count PT with INR INR PTT (Actin FS) Sodium 139 Potassium 4.4 Chloride 106 Carbon Dioxide 30 Anion Gap 4 L BUN 11.0 Creatinine 0.7 Est GFR (CKD-EPI)AfAm 115.59 Est GFR (CKD-EPI)NonAf 99.73 POC Glucometer 131 Random Glucose 100 Hemoglobin A1c % Calcium 8.9 Phosphorus Magnesium 2.4 Iron TIBC Iron Saturation Unsaturated IBC Total Bilirubin 0.2 AST 18 ALT 28 Alkaline Phosphatase 70 Creatine Kinase Troponin I < 0.02 Total Protein 7.2 Albumin 3.9 Triglycerides Cholesterol Total LDL Cholesterol HDL Cholesterol TSH 10/04/19 10/04/19 10/04/19 06:37 06:37 06:40 WBC 6.1 RBC 4.63 Hgb 9.8 L Hct 31.1 L MCV 67.3 L MCH 21.3 L MCHC 31.6 L RDW 16.9 H Plt Count 220 MPV 7.6 Absolute Neuts (auto) 3.4 Neutrophils % 55.2 Lymphocytes % 29.9 Monocytes % 6.5 Eosinophils % 7.8 H Basophils % 0.6 Nucleated RBC % 0 Hypochromia Platelet Estimate Polychromasia Poikilocytosis Anisocytosis Microcytosis Macrocytosis Retic Count 1.81 H PT with INR 13.00 INR 1.10 H PTT (Actin FS) Sodium Potassium Chloride Carbon Dioxide Anion Gap BUN Creatinine Est GFR (CKD-EPI)AfAm Est GFR (CKD-EPI)NonAf POC Glucometer Random Glucose Hemoglobin A1c % Calcium Phosphorus Magnesium Iron 37 L TIBC 438 Iron Saturation 8 L Unsaturated IBC 401 H Total Bilirubin AST ALT Alkaline Phosphatase Creatine Kinase Troponin I Total Protein Albumin Triglycerides 162 H Cholesterol 154 Total LDL Cholesterol 103 H HDL Cholesterol 23 L TSH 2.77 10/04/19 10/04/19 10/04/19 06:40 08:29 11:46 WBC RBC Hgb Hct MCV MCH MCHC RDW Plt Count MPV Absolute Neuts (auto) Neutrophils % Lymphocytes % Monocytes % Eosinophils % Basophils % Nucleated RBC % Hypochromia Platelet Estimate Polychromasia Poikilocytosis Anisocytosis Microcytosis Macrocytosis Retic Count PT with INR INR PTT (Actin FS) Sodium 138 Potassium 4.3 Chloride 105 Carbon Dioxide 28 Anion Gap 5 L BUN 14.0 Creatinine 0.7 Est GFR (CKD-EPI)AfAm 115.59 Est GFR (CKD-EPI)NonAf 99.73 POC Glucometer 126 Random Glucose 128 H Hemoglobin A1c % 7.5 H Calcium 8.9 Phosphorus 4.1 Magnesium 2.2 Iron TIBC Iron Saturation Unsaturated IBC Total Bilirubin 0.4 AST 21 ALT 27 Alkaline Phosphatase 65 Creatine Kinase Troponin I Total Protein 6.7 Albumin 3.6 Triglycerides Cholesterol Total LDL Cholesterol HDL Cholesterol TSH Active Medications Generic Name Dose Route Start Last Admin Trade Name Freq PRN Reason Stop Dose Admin Acetaminophen 650 mg 10/03/19 21:42 Tylenol - PO Q6H PRN PAIN LEVEL 4 - 6 Aspirin 81 mg 10/04/19 10:00 10/04/19 10:15 Asa - PO 81 mg DAILY SILVERIO Administration Atorvastatin Calcium 40 mg 10/04/19 22:00 Lipitor - PO HS SILVERIO Docusate Sodium 100 mg 10/04/19 10:00 10/04/19 10:15 Colace - PO 100 mg DAILY SILVERIO Administration Enoxaparin Sodium 40 mg 10/04/19 10:00 10/04/19 10:15 Lovenox - SQ 40 mg DAILY SILVERIO Administration Iron Sucrose 200 mg/ Sodium 100 mls @ 100 mls/hr 10/04/19 14:00 Chloride IVPB 10/04/19 14:59 ONCE ONE Metoprolol Tartrate 50 mg 10/04/19 10:00 10/04/19 10:15 Lopressor - PO 50 mg BID SILVERIO Administration Senna 1 tab 10/04/19 22:00 Senna - PO HS SILVERIO CBC, BMP 10/04/19 06:37 10/04/19 06:40 ASSESSMENT/PLAN: 4 yo M PMH of HTN, CAD, DM, HLD presenting to ED with chest pain. was found to have symptomatic anemia Hgb 9.1 we were consulted for anemia # Microcytic hypochronic anemia * iron low , denies any blood in stool or urine , denies any weight changes * order ferritin * B12 , folic acid * colonoscopy out pt * heme follow up out pt * occult blood before discharged * start iron supplemet * miralax for any constipation with iron * cancer screening for age out pt # HTN , HLD CAD , DM * rest per primary team Dispo: We will continue to follow the patient. Thank you for this consultative opportunity. discussed with Dr Yeung agree with the plan ATTENDING PHYSICIAN STATEMENT I saw and evaluated the patient. I reviewed the resident's note and discussed the case with the resident. I agree with the resident's findings and plan as documented. SUBJECTIVE: OBJECTIVE: ASSESSMENT AND PLAN:
[2019-10-04] MEDS ORDERED: FERROUS SO4 325 MG TABLET (FP) PO SCH ×2 (14:45→17:30)
[2019-10-04 15:08] VITALS: BP 107/45; PULSE 62; TEMP 98.9
--- NOTE | 2019-10-04 16:21 | PN ---
Teaching Attending Note Name of Resident: Yesenia Sebastian ATTENDING PHYSICIAN STATEMENT I saw and evaluated the patient. I reviewed the resident's note and discussed the case with the resident. I agree with the resident's findings and plan as documented. 64 yo M PMH of HTN, CAD, T2DM, HLD presenting to ED with chest pain. Admitted to rule out ACS. EKG/Echo/labs unremarkable for ACS, however patient experiencing SOB on exertion for the past 2-3 weeks and found to have moderate- severe iron deficiency anemia. Constitutional: Yes: Calm Eyes: Yes: Conjunctiva Clear HENT: Yes: Atraumatic Cardiovascular: Yes: S1, S2+, RRR Respiratory: Yes: CTAB Gastrointestinal: Yes: Soft Genitourinary: Yes: WNL Musculoskeletal: Yes: WNL Edema: No Neurological: Yes: Oriented Psychiatric: Yes: Oriented Vital Signs - 24 hr 10/03/19 10/03/19 10/04/19 19:30 20:00 01:44 Temperature 98.7 F 98 F Pulse Rate 60 54 L Pulse Rate [ 55 L Right] Respiratory 14 19 20 Rate Blood Pressure 137/76 122/71 Blood Pressure 125/72 [Right Arm] O2 Sat by Pulse 99 97 Oximetry (%) 10/04/19 10/04/19 10/04/19 05:00 05:44 08:55 Temperature 97.9 F 97.9 F Pulse Rate 53 L 59 L Pulse Rate [ Right] Respiratory 17 18 Rate Blood Pressure 118/74 108/71 Blood Pressure [Right Arm] O2 Sat by Pulse 97 97 Oximetry (%) 10/04/19 10/04/19 13:00 14:00 Temperature 97.9 F 98.9 F Pulse Rate 56 L 62 Pulse Rate [ Right] Respiratory 18 20 Rate Blood Pressure 114/68 107/45 L Blood Pressure [Right Arm] O2 Sat by Pulse Oximetry (%) Laboratory Results - last 24 hr 10/03/19 10/03/19 10/03/19 15:20 15:20 19:30 WBC RBC Hgb Hct MCV MCH MCHC RDW Plt Count MPV Absolute Neuts (auto) Neutrophils % Lymphocytes % Monocytes % Eosinophils % Basophils % Nucleated RBC % Hypochromia 2+ Platelet Estimate Normal Polychromasia 0 Poikilocytosis 1+ Anisocytosis 1+ Microcytosis 1+ Macrocytosis 0 Retic Count PT with INR 12.30 INR 1.04 PTT (Actin FS) 30.3 Sodium Potassium Chloride Carbon Dioxide Anion Gap BUN Creatinine Est GFR (CKD-EPI)AfAm Est GFR (CKD-EPI)NonAf POC Glucometer Random Glucose Hemoglobin A1c % Calcium Phosphorus Magnesium Iron TIBC Iron Saturation Unsaturated IBC Total Bilirubin AST ALT Alkaline Phosphatase Troponin I < 0.02 Total Protein Albumin Triglycerides Cholesterol Total LDL Cholesterol HDL Cholesterol TSH 10/04/19 10/04/19 10/04/19 06:15 06:37 06:37 WBC 6.1 RBC 4.63 Hgb 9.8 L Hct 31.1 L MCV 67.3 L MCH 21.3 L MCHC 31.6 L RDW 16.9 H Plt Count 220 MPV 7.6 Absolute Neuts (auto) 3.4 Neutrophils % 55.2 Lymphocytes % 29.9 Monocytes % 6.5 Eosinophils % 7.8 H Basophils % 0.6 Nucleated RBC % 0 Hypochromia Platelet Estimate Polychromasia Poikilocytosis Anisocytosis Microcytosis Macrocytosis Retic Count 1.81 H PT with INR INR PTT (Actin FS) Sodium Potassium Chloride Carbon Dioxide Anion Gap BUN Creatinine Est GFR (CKD-EPI)AfAm Est GFR (CKD-EPI)NonAf POC Glucometer 131 Random Glucose Hemoglobin A1c % Calcium Phosphorus Magnesium Iron 37 L TIBC 438 Iron Saturation 8 L Unsaturated IBC 401 H Total Bilirubin AST ALT Alkaline Phosphatase Troponin I Total Protein Albumin Triglycerides 162 H Cholesterol 154 Total LDL Cholesterol 103 H HDL Cholesterol 23 L TSH 2.77 10/04/19 10/04/19 10/04/19 06:40 06:40 08:29 WBC RBC Hgb Hct MCV MCH MCHC RDW Plt Count MPV Absolute Neuts (auto) Neutrophils % Lymphocytes % Monocytes % Eosinophils % Basophils % Nucleated RBC % Hypochromia Platelet Estimate Polychromasia Poikilocytosis Anisocytosis Microcytosis Macrocytosis Retic Count PT with INR 13.00 INR 1.10 H PTT (Actin FS) Sodium 138 Potassium 4.3 Chloride 105 Carbon Dioxide 28 Anion Gap 5 L BUN 14.0 Creatinine 0.7 Est GFR (CKD-EPI)AfAm 115.59 Est GFR (CKD-EPI)NonAf 99.73 POC Glucometer Random Glucose 128 H Hemoglobin A1c % 7.5 H Calcium 8.9 Phosphorus 4.1 Magnesium 2.2 Iron TIBC Iron Saturation Unsaturated IBC Total Bilirubin 0.4 AST 21 ALT 27 Alkaline Phosphatase 65 Troponin I Total Protein 6.7 Albumin 3.6 Triglycerides Cholesterol Total LDL Cholesterol HDL Cholesterol TSH 10/04/19 11:46 WBC RBC Hgb Hct MCV MCH MCHC RDW Plt Count MPV Absolute Neuts (auto) Neutrophils % Lymphocytes % Monocytes % Eosinophils % Basophils % Nucleated RBC % Hypochromia Platelet Estimate Polychromasia Poikilocytosis Anisocytosis Microcytosis Macrocytosis Retic Count PT with INR INR PTT (Actin FS) Sodium Potassium Chloride Carbon Dioxide Anion Gap BUN Creatinine Est GFR (CKD-EPI)AfAm Est GFR (CKD-EPI)NonAf POC Glucometer 126 Random Glucose Hemoglobin A1c % Calcium Phosphorus Magnesium Iron TIBC Iron Saturation Unsaturated IBC Total Bilirubin AST ALT Alkaline Phosphatase Troponin I Total Protein Albumin Triglycerides Cholesterol Total LDL Cholesterol HDL Cholesterol TSH A/P: 64 M h/o CAD, T2DM, HTN, HLD, obesity admitted for episode of chest discomfort, ACS ruled out. Today denies overt chest pain but has some shortness of breath on exertion for the past 2-3 weeks. Labs showing severe iron deficiency anemia. Hematology consulted. Chest pain Unlikely due to cardiac etiology, ACS ruled out Trops neg x2, EKG shows no ischemic changes, patient endorses more SOB on exertion which is likely related to his LIAT Echo showing normal EF without any WMA Continue home meds with beta ryan, statin, ASA As per Cardiology patient may be DC home if workup is unremarkable, patient planned for coronary angio 10/2019. Severe iron deficiency anemia Patient experiencing symptomatic LIAT, with SOB one exertion for the past 2-3 weeks Hematology consulted, will send anemia panel Start empiric iron replacement, 1 dose of IV venofer and then PO iron tabs Patient endorses last colonoscopy was about 4 years ago and was grossly normal, denies blood in stool, will send stool guaiac prior to discharge and follow up with Hematology as outpatient. T2DM A1c 7.5% not optimally managed diet, exercise, weight loss counseling follow up with PCP as outpatient HTN Controlled continue home BP meds HLD Continue statin Obesity diet, exercise, weight loss counseling Disposition: Patient will likely be discharged home with follow up appointments with cardiology, hematology and his primary care physician.
--- NOTE | 2019-10-04 18:18 | DS ---
Physical Exam: SUBJECTIVE: Patient seen and examined at bedside. With improved SOB. Friend at bedside. Excited to go home, without chest pain. OBJECTIVE: Vital Signs Period Temp Pulse Resp BP Sys/Hilario Pulse Ox Last 24 Hr 97.9 F-98.9 F 53-62 14-20 107-137/45-76 97-99 PHYSICAL EXAM GENERAL: in no acute distress. HEAD: Normal with no signs of trauma. EYES: PERRL, extraocular movements intact, sclera anicteric, conjunctiva clear. NECK: Trachea midline, supple. LUNGS: Breath sounds equal, clear to auscultation bilaterally, no accessory muscle use. HEART: Regular rate and rhythm, S1, S2 without murmur, rub or gallop. ABDOMEN: obese, soft, nontender, nondistended EXTREMITIES: 2+ pulses, warm, well-perfused, no edema. NEUROLOGICAL: Cranial nerves II through XII grossly intact. SKIN: Warm, dry, normal turgor, no rashes or lesions noted. LABS Laboratory Tests 10/03/19 10/03/19 10/04/19 15:20 19:30 06:37 Hgb 9.8 L Hct 31.1 L MCV 67.3 L MCH 21.3 L Retic Count 1.81 H INR Sodium Anion Gap Random Glucose Hemoglobin A1c % Calcium Phosphorus Magnesium Iron TIBC Iron Saturation Unsaturated IBC Total Bilirubin AST ALT Alkaline Phosphatase Creatine Kinase 103 Troponin I < 0.02 < 0.02 Triglycerides Cholesterol Total LDL Cholesterol HDL Cholesterol Stool Occult Blood 10/04/19 10/04/19 10/04/19 06:37 06:40 06:40 Hgb Hct MCV MCH Retic Count INR 1.10 H Sodium 138 Anion Gap 5 L Random Glucose 128 H Hemoglobin A1c % Calcium 8.9 Phosphorus 4.1 Magnesium 2.2 Iron 37 L TIBC 438 Iron Saturation 8 L Unsaturated IBC 401 H Total Bilirubin 0.4 AST 21 ALT 27 Alkaline Phosphatase 65 Creatine Kinase Troponin I Triglycerides 162 H Cholesterol 154 Total LDL Cholesterol 103 H HDL Cholesterol 23 L Stool Occult Blood 10/04/19 10/04/19 08:29 15:00 Hgb Hct MCV MCH Retic Count INR Sodium Anion Gap Random Glucose Hemoglobin A1c % 7.5 H Calcium Phosphorus Magnesium Iron TIBC Iron Saturation Unsaturated IBC Total Bilirubin AST ALT Alkaline Phosphatase Creatine Kinase Troponin I Triglycerides Cholesterol Total LDL Cholesterol HDL Cholesterol Stool Occult Blood Negative Imaging 10/03/19: Head CT: no CT evidence of acute intracranial path. partly empty sella turcica which is usually of no clinical significance. this finding may however be noted with increased incidence in the setting of idiopathic intracranial HTN. apparent incidental note is made of a prominent retro- cerebellar cistern. paranasal sinus disease. 10/03/19: CXR: no acute chest path 10/03/19: EKG: NSR, rate 57bpm, qtc 439ms. 10/04/19: ECHO: LVSF is normal. EF 55-60%. mild MR, mild TR, mild AR. no pericardial effusion 10/04/19: EKG: NSR, sinus idalmis, 56bpm rate, [address]-t wave changes noted HOSPITAL COURSE: Date of Admission:10/03/19 Date of Discharge: 10/04/19 64 yo M PMH of HTN, CAD, T2DM, HLD presenting to ED with chest pain. Admitted to rule out ACS. EKG/Echo/labs unremarkable for ACS, however patient experiencing SOB on exertion for the past 2-3 weeks and found to have moderate- severe iron deficiency anemia. Chest pain: ACS has been r/o Trops neg x2, EKG shows no ischemic changes, patient endorses more SOB on exertion which is likely related to his LIAT Echo showing normal EF without any wall motion abnormality, see above result Continue home meds with beta ryan (changed to met tartate 50mg BID from 100mg qd), statin (lipitor 40mg), ASA 81mg qd As per Cardiology patient may be DC home if workup is unremarkable, patient planned for coronary angio 10/2019. Severe iron deficiency anemia Patient experiencing symptomatic LIAT, with SOB one exertion for the past 2-3 weeks Hematology consulted, will send anemia panel Start empiric iron replacement, 1 dose of IV venofer and then PO iron tabs to d/ c home on. also sending with senna, colace to avoid constipation while on iron. Patient endorses last colonoscopy was about 4 years ago and was grossly normal, denies blood in stool, FOBT (-) prior to discharge and follow up with Hematology as outpatient. d/w hematology team T2DM A1c 7.5% not optimally managed diet, exercise, weight loss counseling follow up with PCP as outpatient HTN Controlled continue home BP meds HLD Continue statin Obesity diet, exercise, weight loss counseling Disposition: Patient will be discharged home with follow up appointments with cardiology, hematology and his primary care physician. Minutes to complete discharge: 45 Discharge Summary Problems reviewed: Yes Reason For Visit: CHEST PAIN Condition: Good - Instructions Diet, Activity, Other Instructions: You were in the hospital because you had chest pain. You had an ECHO (picture of your heart) done, which was normal. You were seen by a reliability manager and your heart enzymes were trended and were negative. You were also seen by a blood doctor (education faculty member) and received an infusion of iron since your iron was low and you were short of breath. You improved and are being sent home. Medications 1. New medications: aspirin 81mg (baby aspirin) daily, lipitor 40mg daily. For your heart health 2. New medications: you have been started on iron; please take 325mg daily (1 pill) twice a day with meals. 2. You may take: senna 1 tab at night, colace 100mg daily as needed to prevent constipation (while you are on iron) 3. Changed medication:Your metoprolol tartate dose was changed from 100mg daily( 1 pill) to 50mg twice a day to allow for better blood pressure coverage 4. You may continue your other home medications. Procedures You are planned for a coronary angiogram in 10/2019. Please follow up with your reliability manager. Follow up appointments Please follow up with the following doctors upon your discharge: - your primary care physician - in 1 week. If you would like to follow another, we will send you to Dr. Clemens -1 week - your reliability manager, Dr. Ron - 1 week. - the blood doctor that saw you in the hospital (education faculty member/oncologist)- Dr. Anjana Cunningham - 1 week to go over your recent blood work. You may need additional studies done. - a [facility] specialist (GI doctor), Dr. Perez- 1 week. Since you had iron deficiency, you will need to see a specialist and you may need to have another colonoscopy done, though you had one done 4 yrs ago. This is very important. You should mention to him that you are on aspirin, for your heart health. Since you do not have overt signs of bleeding in the hospital, we will continue this medication since the benefits of heart health right now outweigh the risks. However, this should still be discussed. Referrals: Tomas Layne MD [Staff Physician] - 1 Week Kimberley Perez MD [Staff Physician] - 1 Week Gilles Ron MD [Staff Physician] - 1 Week Anjana Cunningham MD [Staff Physician] - 1 Week Disposition: HOME - Home Medications Comprehensive Discharge Medication List: Ambulatory Orders Metformin HCl [Glucophage] 850 mg PO DAILY 10/03/19 Aspirin [ASA -] 81 mg PO DAILY #30 tab.chew 10/04/19 Atorvastatin Ca [Lipitor] 40 mg PO HS #30 tablet 10/04/19 Docusate Sodium [Colace -] 100 mg PO DAILY PRN #30 capsule 10/04/19 Ferrous Sulfate [Feosol] 325 mg PO BIDWM #60 ud 10/04/19 Metoprolol Tartrate [Lopressor -] 50 mg PO BID #60 tablet 10/04/19 Sennosides [Senna -] 1 tab PO HS PRN #30 tablet 10/04/19 This patient is new to me today: No Emergency Visit: No Critical Care patient: No - Discharge Referral Referred to [facility] No
[2019-10-04] MEDS ORDERED: SENNOSIDES 8.6MG TABLET (FP) PO SCH (22:00)
[2019-10-04] MEDS ORDERED: ATORVASTATIN CA 40 MG TABLET (FP) PO SCH (22:00)
== END 2019-10-04 15:38 | disposition home or self-care (01) ==
LOC: JER 14:08 → JERBED 17:58 → J4W 20:44
PROVIDERS: ADMIT Internal Medicine
PROC: 3E013GC Introduction of Other Therapeutic Substance into Subcutaneous Tissue, Percutaneous Approach (ICD-10-PCS; principal; 2019-10-03)
DX: R07.89 Other chest pain (principal); D50.9 Iron deficiency anemia, unspecified; I10 Essential (primary) hypertension; E78.5 Hyperlipidemia, unspecified; E11.9 Type 2 diabetes mellitus without complications; I25.10 Atherosclerotic heart disease of native coronary artery without angina pectoris; J44.9 Chronic obstructive pulmonary disease, unspecified; E66.9 Obesity, unspecified; Z68.31 Body mass index [BMI] 31.0-31.9, adult; Z79.84 Long term (current) use of oral hypoglycemic drugs
CPT/HCPCS: 36415; 70450-TC; 71045-TC-FY; 80053; 80061; 82272; 82550; 82607; 82728; 82746; 82962; 83036; 83540; 83550; 83721; 83735; 84100; 84443; 84484; 85025; 85044; 85610; 85730; 93005; 93010; 93306-TC; 96372; 99285-25; G0378

== ENCOUNTER 2019-12-22 13:50 | Emergency (ER) | payer OTHER ==
[2019-12-22 14:26] VITALS: BP 117/88; PULSE 65; TEMP 97.9; BMI 30.9
--- NOTE | 2019-12-22 14:33 | PDOC ---
Rapid Medical Evaluation Time Seen by Provider: 12/22/19 14:22 Medical Evaluation: Allergies Allergy/AdvReac Type Severity Reaction Status Date / Time No Known Allergies Allergy Verified 12/22/19 14:26 Vital Signs Temp Pulse Resp BP Pulse Ox 97.9 F 65 20 117/88 100 12/22/19 14:20 12/22/19 14:20 12/22/19 14:20 12/22/19 14:20 12/22/19 14:12/22/19 14:29 I performed a brief in-person evaluation of this patient. Pt is a 64 y/o male who presents to the ED with complaint of bodyaches and subjective fevers since the last 3-4 days. He denies any cough, sob, recent travel, known COVID-19 contacts. Pertinent physical exam findings: no respiratory distress, lungs clear, non- toxic I have ordered the following: influenza Patient to proceed to ED for further evaluation. Discharge Disposition - Diagnosis Body aches - Discharge Dispostion Condition at time of disposition: Stable - Referrals - Patient Instructions - Post Discharge Activity
--- NOTE | 2019-12-22 15:13 | PDOC ---
History of Present Illness - General Chief Complaint: Cold Symptoms Stated Complaint: COUGH Time Seen by Provider: 12/22/19 14:22 History Source: Patient Exam Limitations: No Limitations Past History - Past Medical History Allergies/Adverse Reactions: Allergies Allergy/AdvReac Type Severity Reaction Status Date / Time No Known Allergies Allergy Verified 12/22/19 14:26 Home Medications: Ambulatory Orders Metformin HCl [Glucophage] 850 mg PO DAILY 10/03/19 Aspirin [ASA -] 81 mg PO DAILY #30 tab.chew 10/04/19 Atorvastatin Ca [Lipitor] 40 mg PO HS #30 tablet 10/04/19 Docusate Sodium [Colace -] 100 mg PO DAILY PRN #30 capsule 10/04/19 Ferrous Sulfate [Feosol] 325 mg PO BIDWM #60 ud 10/04/19 Metoprolol Tartrate [Lopressor -] 50 mg PO BID #60 tablet 10/04/19 Sennosides [Senna -] 1 tab PO HS PRN #30 tablet 10/04/19 Cardiac Disorders: Yes COPD: No Diabetes: Yes HTN: Yes - Surgical History Appendectomy: Yes Orthopedic Surgery: Yes (LEFT ARM) - Immunization History Immunization Up to Date: Yes - Psycho Social/Smoking Cessation Hx Smoking History: Never smoked Have you smoked in the past 12 months: No Information on smoking cessation initiated: No Hx Alcohol Use: No Drug/Substance Use Hx: No Substance Use Type: None Hx Substance Use Treatment: No *Physical Exam - Vital Signs Last Vital Signs Temp Pulse Resp BP Pulse Ox 97.9 F 65 20 117/88 100 12/22/19 14:20 12/22/19 14:20 12/22/19 14:20 12/22/19 14:20 12/22/19 14:20 - Physical Exam General Appearance: No: Apparent Distress HEENT: negative: Nasal Congestion, Rhinorrhea Respiratory/Chest: positive: Lungs Clear, Normal Breath Sounds. negative: Respiratory Distress Cardiovascular: positive: Regular Rhythm, Regular Rate, S1, S2. negative: Murmur Gastrointestinal/Abdominal: positive: Normal Bowel Sounds, Soft. negative: Tender, Distended, Guarding, Rebound Integumentary: positive: Normal Color Neurologic: positive: Alert Medical Decision Making - Medical Decision Making 64-year-old male history of hypertension, diabetes, BPH presents with body aches, cough with phlegm, chills, subjective fever for 3 days. Patient did not check his temperature. Patient has not taken any antipyretics today. Denies shortness of breath, chest pain, abdominal pain, nausea, vomiting, diarrhea, urinary symptoms, recent travel. Denies recent contact anyone who was tested positive for COVID COVID screening negative Flu negative Likely viral URI Stable for dc 12/22/19 15:11 Discharge - Discharge Information Problems reviewed: Yes Clinical Impression/Diagnosis: Viral upper respiratory illness Condition: Stable Disposition: HOME - Admission No - Additional Discharge Information Prescription Drug Monitoring Program (I-STOP) results: I-STOP not reviewed - Follow up/Referral Referrals: Sukhjinder Haque MD [Primary Care Provider] - 2 Days - Patient Discharge Instructions Patient Printed Discharge Instructions: DI for Viral Upper Respiratory Infection -- Adult Additional Instructions: Thank you for choosing [facility]. It was a pleasure taking care of you. You were tested negative for flu You have viral infection Alternate between Tylenol every 4 and Motrin every 6 hours as needed for fever Recommend rest and hydration Follow-up with your doctor in 2 days [facility] CORONAVIRUS HOTLINE: Return to the Emergency Department if your symptoms worsen or persist or have other concerning symptoms. - Post Discharge Activity
== END 2019-12-22 15:15 | disposition home or self-care (01) ==
LOC: JERFT 13:50
DX: J06.9 Acute upper respiratory infection, unspecified (principal); B97.89 Other viral agents as the cause of diseases classified elsewhere; I25.10 Atherosclerotic heart disease of native coronary artery without angina pectoris; I10 Essential (primary) hypertension; E11.9 Type 2 diabetes mellitus without complications; Z79.84 Long term (current) use of oral hypoglycemic drugs
CPT/HCPCS: 87804; 99282-25

== ENCOUNTER 2020-06-02 12:13 | Emergency (ER) | payer OTHER ==
--- NOTE | 2020-06-02 12:25 | TELE ---
HPI Do you have fever,cough or shortness of breath?: Yes - General Reason For Visit: COVID 19 TEST History Source: Patient Past History - Medical History Allergies/Adverse Reactions: Allergies Allergy/AdvReac Type Severity Reaction Status Date / Time No Known Allergies Allergy Verified 12/22/19 14:26 Home Medications: Ambulatory Orders Metformin HCl [Glucophage] 850 mg PO DAILY 10/03/19 Aspirin [ASA -] 81 mg PO DAILY #30 tab.chew 10/04/19 Atorvastatin Ca [Lipitor] 40 mg PO HS #30 tablet 10/04/19 Docusate Sodium [Colace -] 100 mg PO DAILY PRN #30 capsule 10/04/19 Ferrous Sulfate [Feosol] 325 mg PO BIDWM #60 ud 10/04/19 Metoprolol Tartrate [Lopressor -] 50 mg PO BID #60 tablet 10/04/19 Sennosides [Senna -] 1 tab PO HS PRN #30 tablet 10/04/19 Cardiac Disorders: Yes COPD: No Diabetes: Yes HTN: Yes - Surgical History Appendectomy: Yes Orthopedic Surgery: Yes (LEFT ARM) - Immunization History Immunization Up to Date: Yes - Psycho-Social/Smoking History Smoking History: Never smoked Have you smoked in the past 12 months: No Review of Systems - Review of Systems Constitutional: Yes: Chills, Fever, Malaise Respiratory: Yes: Cough *Physical Exam - Physical Exam Respiratory/Chest: negative: Respiratory Distress Discharge Diagnosis at time of Disposition: Encounter by telehealth for suspected COVID-19 - Referrals Follow-up Referral(s): Christopher Rodarte MD [Primary Care Provider] - - Patient Instructions - Discharge Disposition: HOME Condition at time of Disposition: Stable
== END 2020-06-02 12:25 | disposition home or self-care (01) ==
LOC: JVIRT 12:13
DX: Z20.828 Contact with and (suspected) exposure to other viral communicable diseases (principal)
CPT/HCPCS: Q3014-GT; U0003

== ENCOUNTER 2020-06-19 11:53 | Emergency (ER) | payer OTHER ==
[2020-06-19 12:11] VITALS: BP 126/65; PULSE 57; TEMP 98.7; BMI 32.9
--- NOTE | 2020-06-19 12:21 | PDOC ---
History of Present Illness - General Chief Complaint: Back Pain Stated Complaint: back pain to leg Time Seen by Provider: 06/19/20 12:20 - History of Present Illness Initial Comments: 06/19/20 12:28 Chief complaint: Back pain radiating to right leg HPI: Right lower back pain with radiation to the posterior thigh and calf for 3 days. History of recurrent back pain and sciatica, treated by orthopedist Dr. Vivas. 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 However, no recent acute injury of which he is aware. He has taken no medication for this episode. He has no urinary or fecal incontinence or retention. He has no saddle anesthesia Review of systems: As noted above. Otherwise reviewed and noncontributory Past medical history: [id number]-[id number] diabetes on Janumet, mild hypertension, recurrent back pain is noted. Social history: No tobacco alcohol or nonprescription drugs. Physically active, frequent bending and lifting as noted above caring for his at home and working as a home health aide Family history: Reviewed and noncontributory Physical exam: Alert and oriented, mild to moderate discomfort low back and right leg. Cooperative Afebrile, vital signs normal for heart rate of 57, on beta-ryan HEENT WNL Neck supple without bruit mass or nodes Lungs clear CV regular without murmur rub or gallop Abdomen soft nontender without mass organomegaly LS spine: There is marked paravertebral muscle spasm, straightening with loss of the normal lumbar lordosis, but no point tenderness over the vertebral bodies and no deformity of the vertebrae. Straight leg raising is positive, but there are no demonstrable sensory or motor deficits in the right leg. Sensation to the perineum is intact and no rectal sphincter laxity. Impression: Recurrent sciatica Plan: Symptomatic treatment and referral back to orthopedist for follow-up. 06/19/20 12:42 Past History - Medical History Allergies/Adverse Reactions: Allergies Allergy/AdvReac Type Severity Reaction Status Date / Time No Known Allergies Allergy Verified 06/19/20 11:54 Home Medications: Ambulatory Orders Metformin HCl [Glucophage] 850 mg PO DAILY 10/03/19 Metoprolol Tartrate [Lopressor -] 50 mg PO BID #60 tablet 10/04/19 Cyclobenzaprine HCl [Flexeril -] 10 mg PO TID #15 tablet 06/19/20 Ibuprofen 400 mg PO QID PRN #20 tablet 06/19/20 Cardiac Disorders: Yes COPD: No Diabetes: Yes HTN: Yes - Surgical History Appendectomy: Yes Orthopedic Surgery: Yes (LEFT ARM) - Immunization History Immunization Up to Date: Yes - Psycho-Social/Smoking History Smoking History: Never smoked Have you smoked in the past 12 months: No Information on smoking cessation initiated: No - Substance Abuse Hx (Audit-C & DAST Scrn) How often the patient has a drink containing alcohol: Never Score: In Men: 4 or > Positive; In Women: 3 or > Positive: 0 Screen Result (Pos requires Nsg. Audit-10AR): Negative In the last yr the pt used illegal drug/Rx for NonMed reason: No Score: Yes response is considered Positive: 0 Screen Result (Positive result requires Nsg. DAST-10): Negative *Physical Exam - Vital Signs Last Vital Signs Temp Pulse Resp BP Pulse Ox 98.7 F 57 L 20 126/65 98 06/19/20 11:53 06/19/20 11:53 06/19/20 11:53 06/19/20 11:53 06/19/20 11:53 Medical Decision Making - Medical Decision Making 06/19/20 13:58 Patient is much improved with medication. Pain in the back and the leg are much less, and he is ambulating well. To continue medication, rest and avoid sitting and follow-up as directed. Discharge - Discharge Information Problems reviewed: Yes Clinical Impression/Diagnosis: Sciatica associated with disorder of lumbar spine Condition: Improved Disposition: HOME - Admission No - Additional Discharge Information Prescriptions: Cyclobenzaprine HCl [Flexeril -] 10 mg PO TID #15 tablet Ibuprofen 400 mg PO QID PRN #20 tablet PRN Reason: Back Pain - Follow up/Referral - Patient Discharge Instructions Patient Printed Discharge Instructions: DI for Back Pain With Sciatica Additional Instructions: Avoid sitting in a chair or car for long periods of time. Rest comfortably lying flat. Do some walking and stretching. Do not do any bending or heavy lifting. Follow-up with your orthopedist Dr. Vivas if the pain persists, 1 week. Print Language: KYRGYZ - Post Discharge Activity
[2020-06-19] MEDS ORDERED: KETOROLAC TROMETHAMINE 60 MG/2 ML VIAL IM ONE (12:39)
[2020-06-19] MEDS ORDERED: ACETAMINOPHEN 325 MG TABLET (FP) PO ONE (12:39)
[2020-06-19] MEDS ORDERED: CYCLOBENZAPRINE HCL 10 MG TABLET (FP) PO ONE (12:40)
[2020-06-19] MEDS ORDERED: ACETAMINOPHEN 325 MG TABLET (FP) ONE (12:44)
[2020-06-19] MEDS ORDERED: KETOROLAC TROMETHAMINE 60 MG/2 ML VIAL ONE (12:44)
[2020-06-19] MEDS ORDERED: CYCLOBENZAPRINE HCL 10 MG TABLET (FP) ONE (12:44)
== END 2020-06-19 14:01 | disposition home or self-care (01) ==
LOC: FER 11:53
PROC: 3E0233Z Introduction of Anti-inflammatory into Muscle, Percutaneous Approach (ICD-10-PCS; principal; 2020-06-19)
DX: M54.30 Sciatica, unspecified side (principal)
CPT/HCPCS: 99284-25

== ENCOUNTER 2020-10-01 10:44 | Emergency (ER) | payer OTHER | END 2020-10-01 12:31 | disposition home or self-care (01) | LOC: JVIRT 10:44 | DX: Z20.828 Contact with and (suspected) exposure to other viral communicable diseases (principal) | CPT/HCPCS: C9803; G2012-GT; Q3014-GT; U0003 ==

== ENCOUNTER 2020-12-13 09:13 | Inpatient (IN) | payer OTHER ==
[2020-12-13 10:48] LABS: HEMATOCRIT 37.2 % (35.4-49); HEMOGLOBIN 12.4 GM/dL (11.7-16.9); MCH 27.8 pg (25.7-33.7); MCHC 33.3 g/dl (32.0-35.9); MEAN CELL VOLUME 83.6 fl (80-96); MEAN PLT VOLUME 8.2 fl (7.5-11.1); PLATELET COUNT 170 K/MM3 (134-434); RBC 4.45 M/mm3 (4.00-5.60); RDW 17.4 % (11.9-15.9); WHITE BLOOD COUNT 3.5 K/mm3 (4.0-10.0)
[2020-12-13 11:08] LABS: CHLORIDE 105 mmol/L (98-107); POTASSIUM 4.1 mmol/L (3.5-5.1); SODIUM 137 mmol/L (136-145)
[2020-12-13 11:10] LABS: BLOOD UREA NITROGEN 6.4 mg/dL (7-18); CALCIUM 8.4 mg/dL (8.5-10.1)
[2020-12-13 11:11] LABS: ALBUMIN 3.6 g/dl (3.4-5.0); ANION GAP 4 MMOL/L (8-16); CO2 28 mmol/L (21-32); GLUCOSE,RANDOM 253 mg/dL (74-106)
[2020-12-13 11:14] LABS: CREATININE 0.9 mg/dL (0.55-1.3); SGOT/AST 20 U/L (15-37); SGPT/ALT 24 U/L (13-61)
[2020-12-13 11:15] LABS: BILIRUBIN,TOTAL 0.3 mg/dL (0.2-1); LDH 184 U/L (87-246); TOT PROT 7.1 g/dl (6.4-8.2)
[2020-12-13 11:16] LABS: ALK PHOS 74 U/L (45-117)
[2020-12-13 11:32] LABS: ERYTHROCYTE SEDIMENTATION RATE 17 mm/hr (0-20)
[2020-12-13 11:55] LABS: ANISOCYTOSIS 0; MACROCYTOSIS 0; PLATELET ESTIMATE NORMAL
[2020-12-13] MEDS ORDERED: BAMLANIVIMAB 700 MG in SODIUM CHLORIDE 250 ML IVPB ONE (12:30)
[2020-12-13] MEDS ORDERED: ACETAMINOPHEN 500 MG TABLET (FP) PO PRN (16:42)
[2020-12-13] MEDS ORDERED: CHOLECALCIFEROL (VIT D3) 1,000 UNIT (25 MCG) TABLET PO ONE (16:45)
[2020-12-13] MEDS ORDERED: ZINC SULFATE 220 MG TABLET PO SCH (17:00)
[2020-12-13] MEDS: ENOXAPARIN NA (PORCINE) 40 MG/0.4 ML DISP.SYRIN SQ SCH (17:11)
[2020-12-13 17:39] LABS: CHOLESTEROL 154 mg/dL (50-200); TRIGLYCERIDES 160 mg/dL (0-150)
[2020-12-13 17:40] LABS: LDL CHOLESTEROL (ONLY SJRH) 96 mg/dL (5-100)
[2020-12-13 17:42] LABS: HDL CHOLESTEROL 27 mg/dL (40-60)
[2020-12-13 18:22] VITALS: BMI 32.5
[2020-12-13 19:07] LABS: CHOLESTEROL 161 mg/dL (50-200); TRIGLYCERIDES 221 mg/dL (0-150)
[2020-12-13 19:09] LABS: LDL CHOLESTEROL (ONLY SJRH) 103 mg/dL (5-100)
[2020-12-13 19:10] LABS: HDL CHOLESTEROL 25 mg/dL (40-60)
[2020-12-13] MEDS ORDERED: ALBUTEROL SO4 HFA INHALER IH PRN (19:47)
[2020-12-13] MEDS ORDERED: guaiFENesin/CODEINE 10 ML UNIT-DOSE CUPS PO PRN (19:48)
[2020-12-13] MEDS ORDERED: PANTOPRAZOLE 40 MG TABLET PO ONE (19:52)
[2020-12-13] MEDS: DEXAMETHASONE SOD PHOSPHATE 4 MG/1 ML VIAL IVPUSH SCH (20:16)
[2020-12-13] MEDS ORDERED: PT OWN MED DRAWER 7, Y5N ONE (20:42)
[2020-12-13] MEDS: traZODone HCL 50 MG TABLET (FP) PO SCH (21:00)
[2020-12-13] MEDS: ASCORBIC ACID 500 MG TABLET (FP) PO SCH (21:00)
[2020-12-13] MEDS: ATORVASTATIN CA 20 MG TABLET (FP) PO SCH (21:00)
[2020-12-13] MEDS: METOPROLOL TARTRATE 50 MG TABLET (FP) PO SCH (21:00)
[2020-12-13] MEDS: INSULIN SLIDING SCALE (NOVOLOG) 1 VIAL SQ SCH (21:09)
[2020-12-13] MEDS ORDERED: guaiFENesin/CODEINE 10 ML UNIT-DOSE CUPS PO SCH (22:00)
[2020-12-14] MEDS: INSULIN SLIDING SCALE (NOVOLOG) 1 VIAL SQ SCH ×4 (06:20→21:55)
[2020-12-14 09:06] LABS: HEMATOCRIT 37.3 % (35.4-49); HEMOGLOBIN 12.6 GM/dL (11.7-16.9); MCH 27.9 pg (25.7-33.7); MCHC 33.8 g/dl (32.0-35.9); MEAN CELL VOLUME 82.4 fl (80-96); MEAN PLT VOLUME 7.9 fl (7.5-11.1); PLATELET COUNT 204 K/MM3 (134-434); RBC 4.53 M/mm3 (4.00-5.60); RDW 17.5 % (11.9-15.9); WHITE BLOOD COUNT 4.3 K/mm3 (4.0-10.0)
[2020-12-14 09:17] LABS: INR 1.03 (0.83-1.09); PROTHROMBIN TIME (PATIENT) 12.4 SEC (9.7-13.0)
[2020-12-14 09:18] LABS: ACTIVATED PTT 29.5 SECONDS (25.2-36.5); CHLORIDE 106 mmol/L (98-107); POTASSIUM 4.2 mmol/L (3.5-5.1); SODIUM 139 mmol/L (136-145)
[2020-12-14 09:26] LABS: ALBUMIN 3.3 g/dl (3.4-5.0); ANION GAP 9 MMOL/L (8-16); BLOOD UREA NITROGEN 16.7 mg/dL (7-18); CALCIUM 8.5 mg/dL (8.5-10.1); CO2 25 mmol/L (21-32); GLUCOSE,RANDOM 183 mg/dL (74-106)
[2020-12-14 09:27] LABS: LDH 166 U/L (87-246)
[2020-12-14 09:28] LABS: BILIRUBIN,TOTAL 0.4 mg/dL (0.2-1); PHOSPHOROUS 3.2 mg/dL (2.5-4.9); TOT PROT 6.9 g/dl (6.4-8.2)
[2020-12-14 09:29] LABS: ALK PHOS 71 U/L (45-117); SGOT/AST 16 U/L (15-37); SGPT/ALT 23 U/L (13-61)
[2020-12-14 09:30] LABS: CREATININE 0.7 mg/dL (0.55-1.3)
[2020-12-14] MEDS: ASCORBIC ACID 500 MG TABLET (FP) PO SCH ×2 (09:31→21:48)
[2020-12-14] MEDS: ZINC SULFATE 220 MG CAPSULE (FP) PO SCH (09:31)
[2020-12-14] MEDS: CHOLECALCIFEROL (VIT D3) 1,000 UNIT (25 MCG) TABLET PO SCH (09:31)
[2020-12-14] MEDS: METOPROLOL TARTRATE 50 MG TABLET (FP) PO SCH ×2 (09:31→21:48)
[2020-12-14] MEDS: ASPIRIN 81 MG CHEWABLE TABLETS PO SCH (09:31)
[2020-12-14] MEDS: ENOXAPARIN NA (PORCINE) 40 MG/0.4 ML DISP.SYRIN SQ SCH (09:32)
[2020-12-14] MEDS: DEXAMETHASONE SOD PHOSPHATE 4 MG/1 ML VIAL IVPUSH SCH (09:32)
[2020-12-14] MEDS: PANTOPRAZOLE 40 MG TABLET PO SCH (09:32)
[2020-12-14 09:34] LABS: N-TERMINAL BNP 21.3 pg/ml (5-125)
[2020-12-14] MEDS ORDERED: guaiFENesin/CODEINE 5 ML UNIT-DOSE CUPS PO PRN (21:48)
[2020-12-14] MEDS: traZODone HCL 50 MG TABLET (FP) PO SCH (21:48)
[2020-12-14] MEDS: ATORVASTATIN CA 20 MG TABLET (FP) PO SCH (21:48)
[2020-12-14] MEDS: guaiFENesin/CODEINE 5 ML UNIT-DOSE CUPS PO SCH (22:02)
[2020-12-15] MEDS: INSULIN SLIDING SCALE (NOVOLOG) 1 VIAL SQ SCH ×4 (06:17→21:08)
[2020-12-15 07:34] LABS: BASO % 0.1 % (0-2.0); EOS % 0.1 % (0-4.5); HEMATOCRIT 36.2 % (35.4-49); HEMOGLOBIN 12.5 GM/dL (11.7-16.9); LYMPH % 13.7 % (8-40); MCH 28.3 pg (25.7-33.7); MCHC 34.4 g/dl (32.0-35.9); MEAN CELL VOLUME 82.2 fl (80-96); MEAN PLT VOLUME 7.9 fl (7.5-11.1); MONO % 5.9 % (3.8-10.2); NEUT % 80.2 % (42.8-82.8); PLATELET COUNT 223 K/MM3 (134-434); RBC 4.41 M/mm3 (4.00-5.60); RDW 17.2 % (11.9-15.9); WHITE BLOOD COUNT 8.7 K/mm3 (4.0-10.0)
[2020-12-15 07:57] LABS: POTASSIUM 4.4 mmol/L (3.5-5.1)
[2020-12-15 08:03] LABS: CALCIUM 8.6 mg/dL (8.5-10.1)
[2020-12-15 08:04] LABS: ALBUMIN 3.4 g/dl (3.4-5.0); BLOOD UREA NITROGEN 18.8 mg/dL (7-18)
[2020-12-15 08:07] LABS: CREATININE 0.7 mg/dL (0.55-1.3)
[2020-12-15 08:08] LABS: BILIRUBIN,TOTAL 0.4 mg/dL (0.2-1); TOT PROT 7.1 g/dl (6.4-8.2)
[2020-12-15] MEDS: PANTOPRAZOLE 40 MG TABLET PO SCH (09:13)
[2020-12-15] MEDS: CHOLECALCIFEROL (VIT D3) 1,000 UNIT (25 MCG) TABLET PO SCH (09:13)
[2020-12-15] MEDS: ASCORBIC ACID 500 MG TABLET (FP) PO SCH ×2 (09:13→21:01)
[2020-12-15] MEDS: METOPROLOL TARTRATE 50 MG TABLET (FP) PO SCH ×2 (09:14→21:01)
[2020-12-15] MEDS: DEXAMETHASONE SOD PHOSPHATE 4 MG/1 ML VIAL IVPUSH SCH (09:16)
[2020-12-15] MEDS: ZINC SULFATE 220 MG CAPSULE (FP) PO SCH (09:16)
[2020-12-15] MEDS: ASPIRIN 81 MG CHEWABLE TABLETS PO SCH (09:17)
[2020-12-15] MEDS: ENOXAPARIN NA (PORCINE) 40 MG/0.4 ML DISP.SYRIN SQ SCH (09:18)
[2020-12-15] MEDS: traZODone HCL 50 MG TABLET (FP) PO SCH (21:01)
[2020-12-15] MEDS: ATORVASTATIN CA 20 MG TABLET (FP) PO SCH (21:01)
[2020-12-15] MEDS: guaiFENesin/CODEINE 5 ML UNIT-DOSE CUPS PO SCH (21:12)
[2020-12-15] MEDS ORDERED: APIXABAN 5 MG TABLET PO SCH (22:00)
[2020-12-15 22:28] VITALS: BP 120/63; PULSE 54; TEMP 98.4
[2020-12-16] MEDS ORDERED: DEXAMETHASONE 4 MG TABLET (FP) PO SCH (10:00)
== END 2020-12-15 21:30 | disposition home or self-care (01) | DRG 137 ==
LOC: JER 09:13 → JERBED 10:33 → OBSVTOIN 10:33 → J4S 16:42
PROVIDERS: ADMIT Family Medicine; ATTEND Nurse Practitioner Acute Care
PROC: XW033F6 Introduction of Bamlanivimab Monoclonal Antibody into Peripheral Vein, Percutaneous Approach, New Technology Group 6 (ICD-10-PCS; principal; 2020-12-13)
DX: U07.1 COVID-19 (principal); J12.82 Pneumonia due to coronavirus disease 2019; I10 Essential (primary) hypertension; E11.9 Type 2 diabetes mellitus without complications; D64.9 Anemia, unspecified; I25.10 Atherosclerotic heart disease of native coronary artery without angina pectoris; E78.5 Hyperlipidemia, unspecified; J44.9 Chronic obstructive pulmonary disease, unspecified; K21.9 Gastro-esophageal reflux disease without esophagitis; R07.89 Other chest pain; E66.9 Obesity, unspecified; Z68.32 Body mass index [BMI] 32.0-32.9, adult; F17.210 Nicotine dependence, cigarettes, uncomplicated; R53.1 Weakness
CPT/HCPCS: 36415; 71045-TC-FY; 80053; 80061; 82550; 82728; 82962; 83036; 83615; 83721; 83735; 83880; 84100; 84484; 85025; 85027; 85379; 85610; 85651; 85730; 86140; 86769; 86850; 86900; 86901; 93005; 93010; 94010; 94761; C9803; M0239; Q0239; U0003

== ENCOUNTER 2021-06-09 10:22 | Emergency (ER) | payer OTHER ==
[2021-06-09 10:35] VITALS: TEMP 98.6; BMI 32.3
[2021-06-09 12:55] LABS: BASO % 0.4 % (0-2.0); EOS % 4.6 % (0-4.5); HEMATOCRIT 32.8 % (35.4-49); HEMOGLOBIN 10.8 GM/dL (11.7-16.9); LYMPH % 24.1 % (8-40); MCH 25.7 pg (25.7-33.7); MCHC 32.8 g/dl (32.0-35.9); MEAN CELL VOLUME 78.4 fl (80-96); MEAN PLT VOLUME 7.7 fl (7.5-11.1); MONO % 7.8 % (3.8-10.2); NEUT % 63.1 % (42.8-82.8); PLATELET COUNT 201 10^3/uL (134-434); RBC 4.19 M/mm3 (4.00-5.60); RDW 15.1 % (11.9-15.9); WHITE BLOOD COUNT 5.9 K/mm3 (4.0-10.0)
[2021-06-09 13:15] LABS: CALCIUM 8.5 mg/dL (8.5-10.1); CHLORIDE 104 mmol/L (98-107); SODIUM 138 mmol/L (136-145)
[2021-06-09 13:17] LABS: ALBUMIN 3.5 g/dl (3.4-5.0); ANION GAP 5 MMOL/L (8-16); CO2 29 mmol/L (21-32); GLUCOSE,RANDOM 156 mg/dL (74-106)
[2021-06-09 13:20] LABS: CREATININE 0.7 mg/dL (0.55-1.3); SGOT/AST 11 U/L (15-37); SGPT/ALT 22 U/L (13-61)
[2021-06-09] MEDS ORDERED: KETOROLAC TROMETHAMINE 15 MG/ML VIAL IVPUSH ONE (13:20)
[2021-06-09 13:22] LABS: BILIRUBIN,TOTAL 0.7 mg/dL (0.2-1); TOT PROT 6.7 g/dl (6.4-8.2)
[2021-06-09 13:23] LABS: ALK PHOS 57 U/L (45-117)
[2021-06-09] MEDS ORDERED: KETOROLAC TROMETHAMINE 15 MG/ML VIAL ONE (13:23)
[2021-06-09] MEDS ORDERED: ONDANSETRON 4 MG/2 ML VIAL IVPUSH ONE (13:24)
[2021-06-09] MEDS ORDERED: SODIUM CHLORIDE 0.9% 500 ML INFUS.BAG IV ONE (13:27)
[2021-06-09] MEDS ORDERED: ONDANSETRON 4 MG/2 ML VIAL ONE (13:27)
[2021-06-09 14:31] LABS: LIPASE 100 U/L (73-393)
[2021-06-09 14:39] LABS: N-TERMINAL BNP 30.1 pg/ml (5-125)
[2021-06-09 14:58] LABS: URINE APPEARANCE CLEAR; URINE BILIRUBIN NEGATIVE (NEGATIVE); URINE COLOR YELLOW; URINE GLUCOSE (UA) NEGATIVE (NEGATIVE); URINE KETONE TRACE (NEGATIVE); URINE LEUK ESTERASE NEGATIVE (NEGATIVE); URINE NITRITE NEGATIVE (NEGATIVE); URINE PROTEIN NEGATIVE (NEGATIVE)
[2021-06-09 15:50] VITALS: BP 138/72; PULSE 67
== END 2021-06-09 15:51 | disposition home or self-care (01) ==
LOC: JER 10:22
PROC: 3E0333Z Introduction of Anti-inflammatory into Peripheral Vein, Percutaneous Approach (ICD-10-PCS; principal; 2021-06-09)
PROC: 3E033GC Introduction of Other Therapeutic Substance into Peripheral Vein, Percutaneous Approach (ICD-10-PCS; 2021-06-09)
DX: R10.9 Unspecified abdominal pain (principal); K59.00 Constipation, unspecified
CPT/HCPCS: 36415; 71045-TC-FY; 74177-TC; 80053; 81003; 82550; 83690; 83880; 84484; 85025; 87086; 93005; 93010; 99285-25; Q9967

== ENCOUNTER 2021-07-26 04:22 | Day surgery (SDC) | payer OTHER ==
[2021-07-23 16:50] VITALS: BMI 31.9
[2021-07-26] MEDS ORDERED: MIDAZOLAM HCL 2 MG/2 ML SINGLE DOSE VIAL ONE ×2 (08:06)
[2021-07-26 11:14] VITALS: BP 113/70; PULSE 68; TEMP 97.8
== END 2021-07-26 11:04 | disposition home or self-care (01) ==
LOC: JASU-SURG 04:22
PROVIDERS: ATTEND Urology
PROC: 0TF3XZZ Fragmentation in Right Kidney Pelvis, External Approach (ICD-10-PCS; principal; 2021-07-26 08:00)
DX: N20.0 Calculus of kidney (principal)
CPT/HCPCS: 82962

== ENCOUNTER 2021-09-30 12:05 | Emergency (ER) | payer OTHER ==
[2021-09-30 12:10] VITALS: TEMP 98.2; BMI 33.1
[2021-09-30 14:51] VITALS: BP 138/60; PULSE 86
== END 2021-09-30 14:51 | disposition home or self-care (01) ==
LOC: JER 12:05
DX: R51.9 Headache, unspecified (principal); J06.9 Acute upper respiratory infection, unspecified; Z11.52 Encounter for screening for COVID-19
CPT/HCPCS: 71045-TC-FY; 87804; 99284-25; C9803; U0003; U0005